=== PATIENT | male | born 1970 | race Caucasian/White ===

== ENCOUNTER 2024-08-20 07:17 | Emergency (ER) | payer BC, SELFPAY ==
[2024-08-20 07:23] VITALS: BP 163/99
--- NOTE | 2024-08-20 08:02 | ED.GENMED ---
History of Present Illness
General
Chief Complaint: Male Genito-Urinary Symptoms
Source: patient
Exam Limitations: none
Time Seen by Provider: 08/20/24 07:49
Nursing documentation reviewed up to this point in time: agreed with
History of Present Illness
History of Present Illness:
53-year-old male past medical history of sarcoidosis, hypertension presenting to the emergency department today with concerns of right-sided scrotal discomfort. He claims that he lifted something heavy 2 days ago since then has noticed discomfort
ongoing to the scrotum. Denies significant changes in urination, abdominal pain nausea vomiting chest pain shortness of breath or additional trauma.
Past History
Past History
ED Past Medical History: HTN and Other (Sarcoidosis)
ED Past Surgical History: None
Social History
Tobacco: Non-smoker
Alcohol: Occasional
Personal:
Living: with family
Employment: Employed
Family History
Family History: Negative Diabetes or CAD
Review of Systems
Review of Systems
Allergies reviewed?: Yes
All Other Systems: ROS reviewed and negative except as documented in HPI and ROS
Phy Exam
Physical Exam
Physical Exam:
GENERAL: Alert , in no apparent distress
EYE: pupils equal and reactive
NECK: Supple, no significant adenopathy.
ENT: o/p clr, mmm.
CARDIAC: Regular rate and rhythm .
LUNGS: Clear breath sounds bilaterally, no acute respiratory distress, no wheezes/rales/rhonchi
ABDOMEN: Mild pain to the right scrotum just above the testicle. No obvious hernia abdomen soft, without focal tenderness, no r/g, no cvat
NEUROLOGICAL: Alert and oriented, no focal neuro deficits
SKIN: Warm and dry, skin intact.
MUSCULOSKELETAL: No edema, well perfused.
PSYCH: Normal and appropriate interaction.
Course
Orders/Labs/Results
Orders:
Orders
08/20/24 07:27
US Scrotum Urgent
Comment:
Reason For Exam: R sided testicle pain
08/20/24 08:39
Urinalysis Reflex To Culture Urgent
Date Specimen was Collected: 08/20/24
Time Specimen was Collected: 08:04
Urine Microscopic Reflex Cult Urgent
Abnormal Lab Results
08/20/24
08:39
Leukocyte Esterase Rfl Trace A
(Negative)
Urine Bacteria (Reflex) Few A
(Negative)
Vital Signs
Initial and Last Documented VS:
Initial Vital Signs
Temp Pulse Resp BP Pulse Ox
98.5 F 90 18 163/99 98
08/20/24 07:23 08/20/24 07:23 08/20/24 07:23 08/20/24 07:23 08/20/24 07:23
Last Documented Vital Signs
Temp Pulse Resp BP Pulse Ox
98.5 F 90 18 163/99 98
08/20/24 07:23 08/20/24 07:23 08/20/24 07:23 08/20/24 07:23 08/20/24 07:23
MDM/Problems Addressed
MDM/Problems Addressed:
53-year-old male presenting to the emergency department today with concerns of right-sided testicular discomfort 2 days after lifting something heavy. Blood pressure elevated otherwise vital signs are normal on arrival. No changes in bowel
movements or bladder. No fevers no urinary symptoms. Some mild discomfort above the right testicle on the right scrotum no redness or warmth no fluctuance or induration. Ultrasound was performed that showed possible mild fat-containing hernia
versus prominent epididymis. Could represent mild epididymitis. No infectious symptoms urinalysis clear no risk factors for sexually-transmitted infection. More likely to be fat-containing hernia. Advised for tight fitting underwear and close
outpatient follow-up with a primary care doctor. Return precautions given.
*Critical Care Note
Total Time (30-74mins, 75-104mins- exclusive of procedures): Not Applicable
ED Attending Note
-
Portions of this chart may have been created with voice recognition software.� Occasional wrong word or��sound alike� substitutions may have occurred due to the inherent limitations of voice recognition software.
Discharge Plan
Departure
Patient Disposition: Home (Routine Discharge)
Date of Disposition: 08/20/24
Time of Disposition: 09:36
Patient with high blood pressure during this ER visit?: No
Condition: Good
Covid-19: Not Applicable
Discharge Problem:
Pain in scrotum
Instructions: How to Perform a Testicular Self-Exam
Prescriptions:
No Action
No Current Medications
celecoxib [Celebrex] 100 mg capsule
100 mg PO BID Qty: 20 0RF
Referrals:
Henri Cabrera DO [Family Provider] -
Activity Restrictions/Additional Instructions:
You came to the emergency today with concerns of scrotal discomfort. No signs of emergent process please rest and ice and follow-up closely with the primary care doctor within 1 to 2 weeks if symptoms are persisting. Return for any worsening, new
or concerning symptoms.
Interventions
Interventions:
*Risk Screen - Suicide Last Done: 08/20/24 07:23
*General Assessment Last Done: 08/20/24 07:23
*Neglect/Abuse Screening Last Done: 08/20/24 07:23
*ED COVID-19 Vaccine History Last Done: 08/20/24 08:00
ED-Male Genitourinary Assessment Last Done: 08/20/24 08:35
Discharge Date and Time
Print Language: OCCITAN
[2024-08-20 09:05] LABS: Urine Albumin Trace (Neg - Trace); Urine Bilirubin Negative (Negative); Urine Character Clear (Clear); Urine Color Yellow; Urine Glucose Negative (Negative); Urine Ketone Negative (Negative); Urine Leukocyte Trace (Negative); Urine Nitrite Negative (Negative); Urine Occult Blood Negative (Negative); Urine Specific Gravity 1.025 (<1.030); Urine Urobilinogen Negative (Neg - 1+)
[2024-08-20 09:18] LABS: Urine Mucus Many; Urine Squamous Cell 0-2 /LPF (Few)
[2024-08-20 09:19] LABS: Urine Amorphous Seen; Urine Bacteria Few (Negative); Urine Red Blood Cell None Seen /HPF (0-2); Urine White Cell 0-2 /HPF (0-5)
[2024-08-20 09:40] VITALS: BP 126/78
== END 2024-08-20 10:04 | disposition home or self-care (01) ==
LOC: EMR 07:17
PROVIDERS: Physician Assistant; EMERGENCY PHYSICIAN Emergency Medicine; FAMILY PHYSICIAN Internal Medicine
DX: N50.82 Scrotal pain (principal); I10 Essential (primary) hypertension; D86.9 Sarcoidosis, unspecified
CPT/HCPCS: 99284; 76870; 81003; 81015; 93976

== ENCOUNTER 2025-07-17 20:40 | Observation (INO) | payer BC, SELFPAY ==
[2025-07-17 14:20] VITALS: BP 179/107
--- NOTE | 2025-07-17 15:47 | ED.GENMED ---
History of Present Illness
General
Chief Complaint: Headache
Source: patient
Exam Limitations: none
Time Seen by Provider: 07/17/25 15:27
History of Present Illness
History of Present Illness:
54-year-old male presents with ongoing illness. He started a month ago with a cough and was seen at an urgent care and was prescribed prednisone. He states he was feeling a little bit better but then got sick again. For the past 5 days he has
been having intermittent fever as high as 100.3 headache cough vomiting now. He notes headache that is increased with coughing. He was diagnosed with sinusitis 2 days ago at a different emergency room and started on Augmentin. He notes no
significant proving but now is vomiting. Denies any significant neck stiffness. No rash or tick bites. He has a history of hypertension and remote history of sarcoidosis. He is not sleeping well. No other complaints at this time
Past History
Past History
ED Past Medical History: HTN and Other (Sarcoidosis)
ED Past Surgical History: None
Social History
Tobacco: Non-smoker
Alcohol: Occasional
Personal:
Living: with family
Employment: Employed
Family History
Family History: Negative Diabetes or CAD
Phy Exam
Physical Exam
Physical Exam:
General: Well-appearing male no acute respiratory distress
HEENT: Normal cephalic atraumatic pupils equal round reactive to light TMs normal mucosa moist posterior pharynx without erythema or exudate neck is supple no
Heart: Regular rate and rhythm lungs: Clear no wheeze
Neurologic exam: Alert and oriented no nuchal rigidity no meningeal signs good strength conversing appropriately
Abdomen is soft nontender nondistended
Skin is warm no rash
Course
Orders/Labs/Results
Orders:
Orders
07/17/25 15:44
CT Head W/o Iv Contrast Urgent
Comment:
Reason For Exam: headache
0.9% Sodium Chloride 1000 ml [Nss] 1,000 ml IV BOLUS
Diphenhydramine [Benadryl] 25 mg IV NOW STA
Prochlorperazine [Compazine] 10 mg IV NOW STA
07/17/25 16:17
COVID-19 Antigen Urgent
Source: Nasal Swab
Complete Blood Count/With Diff Urgent
Comprehensive Metabolic Panel Urgent
Monotest Urgent
Influenza A+B Rapid Molecular Urgent
DEACON Source: Nasal Swab
Specimen Description:
Abnormal Lab Results
07/17/25
16:17
RBC 4.53 L 10^6/uL
(4.70-6.10)
MCH 31.6 H pg
(27.0-31.0)
Abs Immat Gran (auto) 0.1 H 10^3/uL
(0-0.05)
Absolute Neuts (auto) 6.9 H 10^3/uL
(1.4-6.5)
Absolute Monos (auto) 0.7 H 10^3/uL
(0.1-0.6)
Immature Gran % 0.6 H %
(0-0.5)
Neutrophils % 78.2 H %
(42.2-75.2)
Lymphocytes % 13.0 L %
(20.5-51.1)
Sodium 131 L mmol/L
(135-145)
Creatinine 0.6 L mg/dL
(0.7-1.3)
Glucose 122 H mg/dl
(70-99)
07/17/25 16:17
07/17/25 16:17
Vital Signs
Initial and Last Documented VS:
Initial Vital Signs
Temp Pulse Resp BP Pulse Ox
98.1 F 88 18 179/107 98
07/17/25 14:20 07/17/25 14:20 07/17/25 14:20 07/17/25 14:20 07/17/25 14:20
Last Documented Vital Signs
Temp Pulse Resp BP Pulse Ox
98.3 F 75 18 154/101 99
07/17/25 17:35 07/17/25 17:35 07/17/25 14:20 07/17/25 17:35 07/17/25 17:35
MDM/Problems Addressed
Differential Diagnosis Includes:
Patient with continued illness despite being seen 2 days ago at different hospital has been on 4 doses of Augmentin. He was thought to have sinusitis. He notes ongoing headache. He does not get headaches. Consider exacerbation of viral syndrome
versus sinus related headache versus dehydration. Exam clinically not consistent with meningitis. Hold off on LP at this point given no indication to do so at this time. Will check labs recheck COVID flu and mono. Treat symptoms
*Pulse Oximetry
SaO2: 98
Oxygen Mode of Delivery: Room air
Patient hypoxic: no
*Critical Care Note
Total Time (30-74mins, 75-104mins- exclusive of procedures): Not Applicable
Update Note
Update Note:
Reevaluated multiple times. Patient with unchanged headache with still normal neurologic exam. CT of the head was reviewed and demonstrates small of either trace subdural or subarachnoid hemorrhage versus more favored thought of artifact.
Discussed these findings with neurosurgery, Dr. Caldwell who saw the images and felt as though this is likely artifact as well. Nonetheless, patient has intractable headache unrelieved with cocktail here. He was hydrated here. Patient no
better. Will admit to hospital.
ED Attending Note
-
Portions of this chart may have been created with voice recognition software.� Occasional wrong word or��sound alike� substitutions may have occurred due to the inherent limitations of voice recognition software.
Discharge Plan
Departure
Patient Disposition: Home (Routine Discharge)
Date of Disposition: 07/17/25
Time of Disposition: 19:41
Patient with high blood pressure during this ER visit?: No
Discharge Problem:
Headache
Prescriptions:
No Action
No Current Medications
celecoxib [Celebrex] 100 mg capsule
100 mg PO BID Qty: 20 0RF
Referrals:
Henri Cabrera DO [Family Provider, Internal Medicine]
Interventions
Interventions:
*Risk Screen - Suicide Last Done: 07/17/25 14:20
*Neglect/Abuse Screening Last Done: 07/17/25 16:29
*ED COVID-19 Vaccine History Last Done: 07/17/25 16:29
*ED Influenza Vaccine History Last Done: 07/17/25 16:29
ED- Neurological Assessment Last Done: 07/17/25 16:29
Discharge Date and Time
Print Language: TURKISH
[2025-07-17] MEDS: NSS 1000 IV (16:18)
[2025-07-17] MEDS: BENADRYL 25 MG IV (16:20)
[2025-07-17] MEDS: COMPAZINE 10 MG IV (16:20)
[2025-07-17 16:27] LABS: Hematocrit 39.8 % (39.0-52.0); Hemoglobin 14.3 g/dL (13.0-18.0); Mean Corp Hgb Conc. 35.9 g/dL (33.0-37.0); Mean Corpuscular Volume 87.9 fL (80.0-94.0); Nucleated Red Blood Cells % 0 % (-); Platelet Count 207 10^3/uL (130-400); Red Cell Dist. Width 12.4 % (11.5-14.5)
[2025-07-17 16:50] LABS: ALT (SGPT) 26 U/L (0-50); AST (SGOT) 19 U/L (17-59); Albumin 4.7 g/dl (3.5-5.0); Alkaline Phosphatase 53 U/L (38-126); Blood Urea Nitrogen 10 mg/dl (9-20); Calcium 9.4 mg/dl (8.4-10.2); Carbon Dioxide 26 mmol/L (22-30); Chloride 99 mmol/L (98-107); Glucose 122 mg/dl (70-99); Potassium 4.5 mmol/L (3.5-5.1); Sodium 131 mmol/L (135-145); Total Protein 7.3 g/dl (6.3-8.2); eGFR > 60.00
[2025-07-17 16:56] LABS: COVID-19 Antigen Negative (Negative)
[2025-07-17 17:35] VITALS: BP 154/101
[2025-07-17 19:46] VITALS: BP 145/95; BMI 33.4
--- NOTE | 2025-07-17 19:46 | HPS.HSE ---
Family Physician
-
Family Physician: Henri Cabrera
Chief Complaint
-
Headache
History of Present Illness
54-year-old male who has past medical history significant hypertension presenting to the emergency department with ongoing intractable headache
Patient reports that for the last 5 days he has been having headache that appears to be localized to the posterior of his eyes and frontal regions. He did report this as a pressure squeezing from that area. He denies any icepick sensation. He has
not had any vision abnormalities. He denies any numbness or tingling. He denies any weakness. He reports having a low-grade temp of around 99.5 at home. When asked he denies any sinus congestion, runny nose, sore throat he does have mild cough.
He denies any sick contacts. Denies any recent travel. Has had a cough for about 1 month.
Patient denies any prior history of headache syndromes. He denies any new medications.
He was seen at [facility] about 3 days ago and was treated extensively for headaches without any improvement on analgesics such as Toradol as well as an antiemetic such as Reglan. He also received Benadryl. Patient stated that his headaches did
not improve and the urine. Ultimately was diagnosed with sinus headache and was started on amoxicillin. He had an x-ray that was unremarkable. He had no [employer] imaging.
In the emergency department he was afebrile, blood pressure of 154/100 with a pulse of 75 and an oxygen saturation of 90% on room air. CBC was only unremarkable electrolytes were 40 sodium of 131 but otherwise unremarkable. BUN and creatinine were
normal. COVID flu negative. Andrews was negative.
CT of the head showed race right-sided subdural or subarachnoid hemorrhage, although favored artifactual. Consider follow-up imaging with repeat CT and/or MRI, as clinically indicated. This was discussed with neurosurgery�state that this is not a
bleed.
Medical History
Past Medical History
Past Medical History: Reports HTN
Past Surgical History: Reports Orthopedic
Social History
Tobacco: Non-smoker
Alcohol: Occasional
Drug: None
Personal:
Living: With Family
Family History
Family History: Not pertinent
Allergies / Home Medications
Allergies reflects when Allergies were last updated in [employer].
Home Medications with original date entered in [employer]
Allergy/Medication List:
Allergies
Allergy/AdvReac Type Severity Reaction Status Date / Time
No Known Allergies Allergy Verified 07/17/25 14:20
Home Medications
Valsartan 160 mg tablets, 160 mg p.o. daily
Doxycycline 150 mg tablet, 150 mg p.o. twice daily
Review of Systems
-
Constitutional: Reports No Symptoms
EENT: Reports No Symptoms
Respiratory: Reports No Symptoms
Cardiac: Reports No Symptoms
Abdomen/GI: Reports No Symptoms
: Reports No Symptoms
Musculoskeletal: Reports No Symptoms
Skin: Reports No Symptoms
Neurological: Reports Headache; Denies Dizzy, Weakness or Numbness
Endocrine: Reports No Symptoms
Hematologic/Lymphatic: Reports No Symptoms
Psych: Reports No Symptoms
Physical Exam
Vital Signs
Vital Signs
Temp Pulse Resp BP Pulse Ox
98.3 F 75 18 154/101 99
07/17/25 17:35 07/17/25 17:35 07/17/25 14:20 07/17/25 17:35 07/17/25 17:35
Physical Exam
General: Well Developed, Well Nourished and No Apparent Distress
HEENT: NormoCephalic, Moist mucous membranes and Atraumatic
Respiratory: Clear
Cardiac: S1/S2 and Regular Rhythm; No Murmur or Rub
GI: Soft, Non Tender, Non Distended and Normal Bowel Sounds; No Organomegaly
Rectal: Deferred by Provider
Musculoskeletal: No Clubbing, No Cyanosis and No Edema
Skin: No Rash
Neuro: AO x 3 and Nonfocal/grossly intact; No Slurred Speech or Facial Droop
Laboratory Results
-
07/17/25 16:17
07/17/25 16:17
Laboratory Results
Total Bilirubin 0.8 mg/dl (0.2-1.3) 07/17/25 16:17
AST 19 U/L (17-59) 07/17/25 16:17
ALT 26 U/L (0-50) 07/17/25 16:17
Alkaline Phosphatase 53 U/L (38-126) 07/17/25 16:17
Data Reviewed
-
CT Scan: Report Reviewed by me
Lab Data: Labs Reviewed by me
Old Records: Reviewed
Impression/Plan
-
IMPRESSION:
54-year-old male with past medical history for hypertension presented emergency department with new onset intractable headache for the last 5 days, preventing him from sleeping, headache is localized to the preorbital areas as well as the frontal
sinuses but denies any sinus congestion, runny nose or sore throat to suggest a URI. He does have a mild cough which is not present at this time. Does not analgesics, antiemetics in the ED patient continues to have persistent headache. CT of the
head in the ED shows questionable trace right-sided subdural or subarachnoid hemorrhage although favored to be artifactual. This was reviewed by Dr. Caldwell of neurosurgery and felt not to be intracranial hemorrhage.
PLAN:
Intractable headache -unclear etiology and no specific alarm signs but unusual given headache onset at his age without any prior history of headaches. No focal logical deficits. Imaging so far is unremarkable. No obvious sinus fluids will
inflammation in the frontal sinuses or in the upper maxillary sinuses or ethmoid sinuses. Xray from outside hospital was unremarkable.
-Admit to MedSurg observation
-Will obtain a repeat CT scan in 6 hours
-Giving new onset headache although there are no visual abnormalities, will obtain ESR as well as MRI in the morning
� For now we will trial analgesics with Fioricet as well as short acting opioids temporarily
� Continue antiemetics
� Continue his valsartan
� Continue Augmentin for presumed sinusitis, doxycycline for rosacea
� Consider neuro consult in a.m.
DVT prophylaxis�SCDs
CODE STATUS�full code
[2025-07-17] MEDS: FIORICET 2 TAB PO (20:43)
[2025-07-17 20:46] VITALS: BP 170/91
[2025-07-17 21:30] VITALS: BP 132/68; BMI 31.7
[2025-07-17 23:49] VITALS: BP 119/79
[2025-07-17] MEDS: AUGMENTIN 875 MG/125 MG 1 TABLET PO (23:50)
[2025-07-17] MEDS: TYLENOL 650 MG PO (23:50)
[2025-07-18 07:00] VITALS: BP 150/79
[2025-07-18 07:43] LABS: Hematocrit 39.5 % (39.0-52.0); Hemoglobin 13.8 g/dL (13.0-18.0); Mean Corp Hgb Conc. 34.9 g/dL (33.0-37.0); Mean Corpuscular Volume 87.8 fL (80.0-94.0); Platelet Count 213 10^3/uL (130-400); Red Cell Dist. Width 12.7 % (11.5-14.5)
[2025-07-18 08:14] LABS: Blood Urea Nitrogen 10 mg/dl (9-20); Calcium 9.4 mg/dl (8.4-10.2); Carbon Dioxide 28 mmol/L (22-30); Chloride 101 mmol/L (98-107); Estimated Creatinine Clearance > 125 ml/min; Glucose 113 mg/dl (70-99); Potassium 4.8 mmol/L (3.5-5.1); Sodium 134 mmol/L (135-145); eGFR > 60.00
[2025-07-18] MEDS: AUGMENTIN 875 MG/125 MG 1 TABLET PO ×2 (08:35→19:23)
[2025-07-18] MEDS: DIOVAN 160 MG PO (08:36)
[2025-07-18] MEDS: VIBRAMYCIN 50 MG PO (08:36)
[2025-07-18] MEDS: REGLAN 10 MG IV ×2 (08:40→18:24)
--- NOTE | 2025-07-18 08:52 | CON.NEURO4 ---
Consultation - Neurology 4
-
CONSULTING PHYSICIAN: Dr. Klaus Blood
REFERRING PHYSICIAN: Dr. North Roe
DICTATED BY: Dr. Klaus Blood
DATE/TIME OF REQUEST:
DATE/TIME OF CONSULTATION: 07/18/2025
Reason for Consultation: Headache
ASSESSMENT AND PLAN:
The patient is a 54 years old male, who presented with history of onset of headache about 5 days prior to admission. For the past 5 days prior to admission, he has been having intermittent fever as high as 100.3, headache, cough and vomiting now.
He notes headache that is increased with coughing. The patient describes the headache as a pressure-like headache, and says it is present bilaterally. He rates the headache severity about 5 out of 10 at this time however he says that at the time
of admission it was about 10 out of 10 in severity. The patient complains of cervical muscle spasm. There are no signs of meningeal irritation.
. Recommend to use Excedrin tension headache one tablet Q6H PRN headache.
. If needed can add Fexeril 5 [address]ID [address]
. [address] Head: No acute intracranial abnormality.
. MRI brain with and without contrast
History of Present Illness:
The patient is a 54 years old male, who presented with history of onset of headache about 5 days prior to admission. For the past 5 days prior to admission, he has been having intermittent fever as high as 100.3, headache, cough and vomiting now.
He notes headache that is increased with coughing. The patient describes the headache as a pressure-like headache, and says it is present bilaterally. He rates the headache severity about 5 out of 10 at this time however he says that at the time
of admission it was about 10 out of 10 in severity. He denies any excessive stress at home or work prior to admission. He was diagnosed with sinusitis 2 days prior to admission at a different emergency room and started on Augmentin. He notes no
significant improvement. Denies any significant neck stiffness. No rash or tick bites. He has a history of hypertension and remote history of sarcoidosis. He is not sleeping well. No other complaints at this time.
Past Medical History: HTN
Surgical History: None
Family History: Negative Diabetes or CAD
Social History:
Tobacco: Non-smoker
Alcohol: Occasional
Review of Systems:
The 10 point review systems were negative aside from as given the above history of present illness.
Neurologic Examination:
Alert and oriented x 3
Speech is clear
The cranial nerves II to XII are grossly intact. The visual bolanos are grossly full to confrontation bilaterally
The motor strength is grossly 5/5 bilaterally
Sensation is grossly intact bilaterally
The cerebellar examination does not show any limb ataxia
Vital Signs and Labs
-
Vital Signs and Labs:
Vital Signs
Temp Pulse Resp BP Pulse Ox
37.4 C 76 20 150/79 95
07/18/25 07:00 07/18/25 08:36 07/18/25 07:00 07/18/25 08:36 07/18/25 07:00
Lab Results
07/18/25 07:06
07/18/25 07:05
Sodium 134 mmol/L (135-145) L 07/18/25 07:05
Potassium 4.8 mmol/L (3.5-5.1) 07/18/25 07:05
BUN 10 mg/dl (9-20) 07/18/25 07:05
Glucose 113 mg/dl (70-99) H 07/18/25 07:05
Calcium 9.4 mg/dl (8.4-10.2) 07/18/25 07:05
Medications
-
Active Medications
Generic Name Dose Route Start Last Admin
Trade Name Freq PRN Reason Stop Dose Admin
Acetaminophen 650 mg 07/17/25 21:35 07/17/25 23:50
Acetaminophen 325 Mg Tablet PO 08/14/25 21:34 650 mg
Q6HPRN PRN Administration
mild pain
Amoxicillin/Clavulanate Potassium 1 tablet 07/18/25 08:00 07/18/25 08:35
Amoxicillin (875 Mg)/Clavulanate (125 Mg) Tablet PO 1 tablet
Q12 CHRISTIAN Administration
Bisacodyl 10 mg 07/17/25 21:35
Bisacodyl 10 Mg Rectal Suppository RECTAL 08/14/25 21:34
[id number] PRN
constipation
Doxycycline Hyclate 50 mg 07/18/25 08:00 07/18/25 08:36
Doxycycline 50 Mg Capsule PO 50 mg
DAILY CHRISTIAN Administration
Hydralazine HCl 5 mg 07/17/25 21:35
Hydralazine 20 Mg/Ml Vial IV 08/14/25 21:34
Q6HPRN PRN
for SBP > 160 or DBP > 105
Hydromorphone HCl 0.5 mg 07/17/25 20:43
Hydromorphone 0.5 Mg/0.5 Ml Syringe IV 07/31/25 20:42
ONCE PRN
severe pain
Metoclopramide HCl 10 mg 07/17/25 21:35 07/18/25 08:40
Metoclopramide 10 Mg/2 Ml Vial IV 08/14/25 21:34 10 mg
Q6HPRN PRN Administration
intractable headache
Ondansetron HCl 4 mg 07/17/25 21:35
Ondansetron 4 Mg/2 Ml Vial IV 08/14/25 21:34
Q6HPRN PRN
nausea and vomiting
Oxycodone HCl 5 mg 07/17/25 21:35
Oxycodone 5 Mg Regular Release Tablet PO 07/31/25 21:34
Q4HPRN PRN
moderate pain
Polyethylene Glycol 17 grams 07/17/25 21:35
Polyethylene Glycol Powder 17 Grams Packet PO 08/14/25 21:34
DAILYPRN PRN
constipation
Senna/Docusate Sodium 1 tablet 07/17/25 21:35
Docusate W/Senna (Deidra-Colace) Tablet PO 08/14/25 21:34
BIDPRN PRN
constipation
Sodium Chloride 0 flush 07/17/25 22:00
Sodium Chloride 0.9% (Flush) Syringe IV 08/14/25 21:59
PER PROTOCOL CHRISTIAN
Valsartan 160 mg 07/18/25 08:00 07/18/25 08:36
Valsartan 160 Mg Tablet PO 08/15/25 07:59 160 mg
DAILY CHRISTIAN Administration
Home Medications
�Medication �Instructions �Recorded
acetaminophen 325 mg tablet 650 mg PO Q6HPRN PRN mild pain 07/17/25
(Tylenol)
doxycycline hyclate 50 mg capsule 50 mg PO DAILY snf 07/17/25
valsartan 160 mg tablet 160 mg PO DAILY 07/17/25
--- NOTE | 2025-07-18 10:54 | W.PN.HOSP.TC ---
Today's Communication/Plan
-
Brain MRI
Assessment / Plan
Assessment / Plan
Physical exam:
General: Well Developed, Well Nourished and No Apparent Distress
HEENT: Normocephalic, Atraumatic and Moist Mucous Membranes
Respiratory: Clear to Auscultation; Negative Wheezes, Rales or Rhonchi
Cardiac: Regular Rhythm and S1/S2
GI: Soft, Nontender and Nondistended
Musculoskeletal: No Clubbing, No Cyanosis and No Edema
Neuro: Awake, Alert and Oriented, no neuro-deficits
Psych: Calm
A/P:
Intractable headache:
-recent viral infection
-supportive care
-abnormal ct head
-Neurology consult today-discussed with neuro who will see patient and recommends switch MRI to w/o and w contrast.
-Plan brain MRI
DVT prophylaxis�SCDs
CODE STATUS�full code
Total time spent on today's encounter was 36 minutes which included time spent in counseling the patient/family regarding diagnosis and treatment plan as listed above, goals of care, and symptom management. Case was discussed with nursing staff,
specialists, and care coordinators/case management. All labs and imaging personally reviewed by me. Remainder the time spent in detailed review of previous records, lab data, imaging, and other medical provider documentation.
Anticipated Discharge: Within 24 hours
Subjective/Interval History
-
Date of Service: July 18, 2025
Feels better, less h/a. Afebrile
Objective Data
-
Labs:
Laboratory Results
07/18/25 07/18/25
07:05 07:06
WBC 9.7
Hgb 13.8
Hct 39.5
Plt Count 213
Sodium 134 L
Potassium 4.8
Chloride 101
Carbon Dioxide 28
BUN 10
Creatinine 0.7
Glucose 113 H
Calcium 9.4
Vital Signs:
Vital Signs
Temp Pulse Resp BP Pulse Ox
99.4 F 76 20 150/79 95
07/18/25 07:00 07/18/25 08:36 07/18/25 07:00 07/18/25 08:36 07/18/25 10:39
--- NOTE | 2025-07-18 11:40 | CM ---
I.A: Completed By HALEY Garces
Patient live with his in a [address] with 2 STI and 12 STI. DME: None
PCP: dr. Henri Cabrera
Pharm: [facility]
Patient has transport home. PLAN: Anticipate Home No Needs.
[2025-07-18] MEDS: ROXICODONE 5 MG PO ×2 (13:48→19:23)
[2025-07-18 23:23] VITALS: BP 143/77
[2025-07-19 07:00] VITALS: BP 139/79
[2025-07-19] MEDS: VIBRAMYCIN 50 MG PO (08:38)
[2025-07-19] MEDS: DIOVAN 160 MG PO (08:38)
[2025-07-19] MEDS: AUGMENTIN 875 MG/125 MG 1 TABLET PO (08:38)
--- NOTE | 2025-07-19 08:53 | W.PN.HOSP.TC ---
Today's Communication/Plan
-
Neurology reeval
Assessment / Plan
Assessment / Plan
Physical exam:
General: Acutely ill. No apparent distress at the moment.
HEENT: Normocephalic, Atraumatic and Moist Mucous Membranes
Respiratory: Clear to Auscultation; Negative Wheezes, Rales or Rhonchi
Cardiac: Regular Rhythm and S1/S2
GI: Soft, Nontender and Nondistended
Musculoskeletal: No Clubbing, No Cyanosis and No Edema
Neuro: Awake, Alert and Oriented, no neuro-deficits
Psych: Calm
A/P:
Intractable headache and brain lesion:
Patient has abnormal MRI of the brain with small enhancing hyperintense focus with the superior left cerebellum. Radiology reports possibly reflect a focus of active demyelination or gliosis versus tiny neoplasm or metastasis.
Neurology consulted-will await further input
Discussed with patient and at bedside--> unsure of significance of the brain lesion but will wait for neurology input first to see if need further images or follow-up outpatient or needs surgical input for biopsy or other.
Will check PSA levels
Might need to do CT of chest abdomen but await neurology input as mentioned above.
Recent viral illness with also possible sinusitis:
Supportive care
On Augmentin
Hyponatremia:
Continue to monitor
DVT prophylaxis�SCDs
CODE STATUS�full code
Total time spent on today's encounter was 52 minutes which included time spent in counseling the patient/family regarding diagnosis and treatment plan as listed above, goals of care, and symptom management. Case was discussed with nursing staff,
specialists, and care coordinators/case management. All labs and imaging personally reviewed by me. Remainder the time spent in detailed review of previous records, lab data, imaging, and other medical provider documentation. More than 50% of the
time counseling coordination regarding brain lesion with patient and .
Anticipated Discharge: 24 - 48 hours
Subjective/Interval History
-
Date of Service: July 19, 2025
Patient still having headache but much less than before. URI symptoms improved. Afebrile.
Objective Data
-
Vital Signs:
Vital Signs
Temp Pulse Resp BP Pulse Ox
99.2 F 79 16 139/79 96
07/19/25 07:00 07/19/25 07:00 07/19/25 07:00 07/19/25 07:00 07/19/25 07:00
I&O
07/18/25 07/19/25 07/20/25
06:59 06:59 06:59
Intake Total 720 / 720
Balance 720 / 720
[2025-07-19] MEDS: ROXICODONE 5 MG PO (10:25)
[2025-07-19] MEDS: TYLENOL 650 MG PO (10:26)
--- NOTE | 2025-07-19 14:33 | W.DCSUMMARY ---
Addendum entered and electronically signed by North Roe MD 07/19/25 15:17:
Per patient report neurology recommended muscle relaxant at night time and short course of oxycodone as needed--> prescriptions sent to his pharmacy.
Original Note:
Discharge Summary
Discharge Data
Date of Admission: 07/17/25
Date of Discharge: 07/19/25
Total time spent discharging patient (in min): 32
-
Pending Results: No
Hospital Course
Patient 54 years old male with history of hypertension, remote history of sarcoidosis, recent URI, came into the hospital with persistent headache. Patient has been prescribed some oral antibiotics recently but he has been having persistent
headache so he came into the hospital. Neurology consulted. He had a CT scan of the head that was read abnormal for possible bleed that he also had a follow-up CT scan and a follow-up MRI with no evidence of bleeding. Neurology ordered MRI of the
brain with and without contrast and it came back with a small enhancing hyperintense focus lesion within the superior left cerebellum and questionable hyperintensity within the bilateral Hebel Thibodeaux region and anterior superior right cerebellum
but without definitive associate abnormal postcontrast enhancement in these regions. Patient is symptomatically much improved clinically. The significance of this finding was unclear. Neurology reevaluated the patient and saw the MRI and they
feel the findings on the MRIs are nonspecific. Neurology does recommend to have a follow-up brain MRI in about 3 months as outpatient. Neurology is clearing the patient for discharge today. He will be discharged in stable condition today.
Discharge duration: 32 minutes
Discharge Plan
-
Patient Disposition: Home (Routine Discharge)
Discharge Diagnosis/Procedures: Severe headache. Viral illness. Sinusitis. Abnormal MRI of the brain nonspecific.
Diet: Low Cholesterol
Activity: As tolerated
Blood Work: Please PCP to order CBC, BMP within 1 week
Referrals:
Klaus Blood MD [Active, Neurology] - in one to two weeks
Henri Cabrera DO [Family Provider, Internal Medicine] - in less than 1 week
Additional Discharge Medication Instructions: Repeat brain MRI with and without contrast in about 3 months with PCP or neurologist.
Prescriptions:
Continued
acetaminophen [Tylenol] 325 mg Tablet
650 mg PO Q6HPRN PRN (Reason: mild pain)
doxycycline hyclate 50 mg Capsule
50 mg PO DAILY
valsartan 160 mg Tablet
160 mg PO DAILY
Discharge Orders:
Discharge Patient (As Directed); Ordered 07/19/25
Ordered By: North Roe
Discharge Date and Time
Print Language: YAKUT
--- NOTE | 2025-07-19 14:55 | CM ---
F/U: Patient discharging home. PLAN: Home No Needs.
[2025-07-19 15:03] VITALS: BP 155/89
== END 2025-07-19 16:37 | disposition home or self-care (01) ==
LOC: 4 EAST ACU 20:40
PROVIDERS: Physician Assistant; ADMITTING PHYSICIAN Internal Medicine; ATTENDING PHYSICIAN Hospitalist; CONSULT PHYSICIAN Psychiatry & Neurology Neurology; EMERGENCY PHYSICIAN Emergency Medicine; FAMILY PHYSICIAN Internal Medicine
DX: B34.9 Viral infection, unspecified (principal); J32.9 Chronic sinusitis, unspecified; R51.9 Headache, unspecified; I10 Essential (primary) hypertension; E87.1 Hypo-osmolality and hyponatremia; G93.9 Disorder of brain, unspecified; Z11.52 Encounter for screening for COVID-19; Z79.899 Other long term (current) drug therapy; R94.02 Abnormal brain scan
CPT/HCPCS: 70030; 70450; 70553; 80048; 80053; 85025; 85027; 85652; 86308; 87502; 87811; 96374; 96375; 99284; A9575; G0378

== ENCOUNTER → 2025-08-03 12:00 | Outpatient (REF) | payer BC, SELFPAY | LOC: DHSLP 12:00 | PROVIDERS: ATTENDING PHYSICIAN Internal Medicine; FAMILY PHYSICIAN Internal Medicine | DX: G47.33 Obstructive sleep apnea (adult) (pediatric) (principal) | CPT/HCPCS: 95800 ==